=== PATIENT | female | born 1970 | race African-American/Black ===

== ENCOUNTER 2018-10-12 07:15 | Day surgery (SDC) | payer OTHER ==
[~2018-10-12] VITALS: Ht 180.3 cm; Wt 181.4 kg
[2018-10-12] MEDS ORDERED: MIDAZOLAM HCL 5 MG/5 ML VIAL ONE (09:29)
[2018-10-12] MEDS ORDERED: SIMETHICONE 40 MG/0.6 ML ML ONE (09:42)
[2018-10-12] MEDS: MIDAZOLAM HCL 5 MG/5 ML VIAL ONE ×3 (10:00→10:04)
[2018-10-12] MEDS: MEPERIDINE HCL/PF 100 MG/ML AMP ONE ×2 (10:00→10:06)
[2018-10-12 12:18] VITALS: BP_SYST 137
== END 2018-10-12 11:00 | disposition home or self-care (01) ==
LOC: SDS 07:15 → SMU 07:15 → SDS 11:00
PROVIDERS: ATTEND Colon & Rectal Surgery
DX: Z12.11 Encounter for screening for malignant neoplasm of colon (principal); I10 Essential (primary) hypertension; E11.69 Type 2 diabetes mellitus with other specified complication; E78.5 Hyperlipidemia, unspecified; E66.01 Morbid (severe) obesity due to excess calories; Z68.43 Body mass index [BMI] 50.0-59.9, adult; E55.9 Vitamin D deficiency, unspecified; Z82.49 Family history of ischemic heart disease and other diseases of the circulatory system; Z83.3 Family history of diabetes mellitus; Z80.3 Family history of malignant neoplasm of breast; Z80.0 Family history of malignant neoplasm of digestive organs; Z85.43 Personal history of malignant neoplasm of ovary
CPT/HCPCS: 45378; J2175; J2250; J7030